=== PATIENT | female | born 1955 | race Caucasian/White ===

== ENCOUNTER 2022-05-14 13:15 | Emergency (ER) | payer MEDICARE, SELFPAY ==
--- NOTE | ~2022-05-14 | XR_ITS ---
XR chest 2V DATE: 05/14/2022 16:42 INDICATION: Cough for 3 to 4 weeks. Shortness of breath. TECHNIQUE: 2 views COMPARISON: 02/01/2014 CTA pulmonary scan 02/01/2014 2 view chest FINDINGS: There is bilateral hyperinflation with increased retrosternal airspace and flattening the d iaphragm, consistent with COPD. No pulmonary infiltrate or consolidation, pleural effusion or pulmonary vascular congestion or pneumo thorax is detected. Normal heart size. Aortic calcification. Included skeletal structures are unremarkable. IMPRESSION: COPD Aortic atherosclerosis Reviewed, dictated and finalized at location A. S AND SERVICE REPRESENTATIVE IMPRESSION: COPD Aortic atherosclerosis
[2022-05-14 14:55] VITALS: BP 139/85; PULSE 109; RESP 24; TEMP 36.7; O2SAT 95
--- NOTE | 2022-05-14 16:34 | ED.URI ---
HPI - URI/Sore Throat General Chief Complaint: Upper Respiratory Infection Stated Complaint: runny nose,cough Time Seen by Provider: 05/14/22 16:28 Source: patient Mode of arrival: ambulatory Limitations: no limitations History of Present Illness HPI Narrative: Patient presents today with 3-4 week history of cough and rhinorrhea room with shortness of breath that started last night. Denies fever. History of COPD. Denies history of CHF her asthma. She has been taking ibuprofen and cough medicine with mild relief. Related Data Home Medications Medication Instructions Recorded Confirmed amlodipine 5 mg tablet mg 05/14/22 famotidine 20 mg tablet mg 05/14/22 lisinopril 20 tablet 05/14/22 mg-hydrochlorothiazide 25 mg tablet metoprolol succinate 50 mg mg PO 05/14/22 tablet,extended release 24 hr potassium chloride 20 mEq meq PO 05/14/22 tablet,extended release(part/cryst) (Klor-Con M) simvastatin 20 mg tablet mg 05/14/22 Allergies Allergy/AdvReac Type Severity Reaction Status Date / Time No Known Allergies Allergy Verified 10/19/12 07:30 Review of Systems Review of Systems: CONSTITUTIONAL: Denies body aches, fever, chills, or sweats. EYES: Denies visual changes, redness, or discharge. ENT: Denies congestion, sore throat, or otalgia.+ rhinorrhea CARDIOVASCULAR: Denies chest pain, palpitations, or edema. RESPIRATORY: + Cough, shortness of breath GASTROINTESTINAL: Denies abdominal pain, nausea, vomiting, or diarrhea. GENITOURINARY: Denies dysuria or hematuria. SKIN: Denies rash, itching, or wounds. MUSCULOSKELETAL: Denies back pain, joint pain, or myalgia. NEUROLOGIC: Denies headache, numbness, tingling, or weakness. PSYCH: Denies depression or anxiety. FOR[facility]LY [facility] Past Medical History Medical History (Updated 05/14/22 @ 17:05 by Joan Johnson, GISELLE, BC) COPD (chronic obstructive pulmonary disease) Family History Family History Mother Hypertension Family history of diabetes mellitus in first degree relative Father Family history of diabetes mellitus in first degree relative Acute myocardial infarction Sibling Family history of malignant neoplasm of esophagus Other Diabetes mellitus Family history of cardiovascular disease Social History Social History Alcohol intake: current Comments At time of signature, I have reviewed and agree with nursing past medical, surgical, social and family history unless otherwise noted. Please see nursing chart for further information. There is no relevant family history pertinent to the presenting complaint Exam Narrative: GENERAL: acute on chronically ill-appearing, well-nourished, and in no acute distress. HEAD: Normocephalic, atraumatic. EYES: EOMI. No redness or drainage. Conjunctivae normal. ENT: Mucous membranes pink and moist. Nares clear. No rhinorrhea. TMs normal bilaterally. Throat normal. Uvula midline. NECK: Normal AROM. Supple. No lymphadenopathy. CHEST: No respiratory distress. diminished in the bilateral bases, left greater than right. HEART: Regular rate and rhythm. No murmur appreciated. Normal peripheral pulses. EXTREMITIES: Normal range of motion. No edema. SKIN: Warm, dry, no rash. Capillary refill normal. Normal skin turgor. NEURO: No focal deficits. Alert and oriented x3. Gait steady. PSYCH: Normal affect. No signs of depression or anxiety. Course Course Level of Care: Express Care Visit Vital Signs Vital signs: Vital Signs Temperature 98.0 F 05/14/22 14:55 Pulse Rate 109 H 05/14/22 14:55 Respiratory Rate 24 H 05/14/22 14:55 Blood Pressure 139/85 05/14/22 14:55 Pulse Oximetry 95 05/14/22 14:55 Oxygen Delivery Room Air 05/14/22 14:55 Temperature 98.0 F 05/14/22 14:55 Pulse Rate 109 H 05/14/22 14:55 Respiratory Rate 24 H 05/14/22 14:55 Blood Pres
== END 2022-05-14 17:14 | disposition home or self-care (01) ==
PROVIDERS: Emergency Provider Nurse Practitioner; PCP Nurse Practitioner Family
DX: J44.1 Chronic obstructive pulmonary disease with (acute) exacerbation (principal); J06.9 Acute upper respiratory infection, unspecified
CPT/HCPCS: 71046; 99213; G0463